=== PATIENT | female | born 1985 | race Caucasian/White ===

== ENCOUNTER 2016-10-23 23:20 | Emergency (ER) | payer BC, OTHER, SELFPAY ==
[~2016-10-23] VITALS: Ht 162.6 cm; Wt 79.4 kg
[~2016-10-23 23:20] MED LIST: /INSUNPH SC; /INSUREG SC; /LABE20TA PO; GLYBERIDE PO; IBUP80TA PO; INSURSD SC; LABE300T PO; LABE5INJ PO; NOVOINJ5 SC; ONE A DAY VITAMIN PO; PERC5TAB6 PO
[2016-10-24 05:00] VITALS: BP 127/70
[2016-10-24] MEDS ORDERED: NORCO 5/325MG TABLET (BULK FOR ED) PO ONE (06:30)
--- NOTE | 2016-10-24 08:25 | REP ---
Left wrist series: Six views including navicular projection. History: Wrist injury. Findings: Six views of the left wrist demonstrate normal bones, joints and soft tissues. No fracture or subluxation is seen. Impression: No fracture seen. Signed by Cole Mcintosh MD 10/24/2016 10:14 A
== END 2016-10-24 06:49 | disposition home or self-care (01) ==
LOC: M ED 10-24
DX: Z88.2 Allergy status to sulfonamides (principal)

== ENCOUNTER → 2017-02-21 | Outpatient (REF) | payer BC ==
[~2017-02-21] MED LIST changes: +NITR100C2; +PERC5TAB12 PO; -PERC5TAB6 PO; +PHEN37.5; +TYLE500T78 PO; +ULTR50TA8 PO; +ZOFR4TAB3 PO
== END ==
LOC: M LAB REF 12:43
PROVIDERS: ATTEND Physician Assistant
DX: N30.01 Acute cystitis with hematuria (principal)

== ENCOUNTER 2017-02-22 17:16 | Emergency (ER) | payer BC ==
[~2017-02-22] VITALS: Ht 162.6 cm; Wt 76.3 kg
[~2017-02-22 17:16] MED LIST changes: -NITR100C2; -PHEN37.5; -TYLE500T78 PO; -ULTR50TA8 PO; -ZOFR4TAB3 PO
[2017-02-22] MEDS ORDERED: PHEN37.5 (17:37)
[2017-02-22] MEDS ORDERED: NITR100C2 (17:37)
[2017-02-22] MEDS ORDERED: NS 1,000 ML IV ONE (18:15)
[2017-02-22] MEDS ORDERED: KETOROLAC 30 MG/ML VIAL (J1885) IV ONE (18:15)
[2017-02-22] MEDS ORDERED: ONDANSETRON 4MG/2ML VIAL (J2405) IV ONE (18:15)
[2017-02-22] MEDS ORDERED: PANTOPRAZOLE 40MG INJ (PROTONIX) (C9113) IV ONE (18:15)
[2017-02-22 18:51] LABS: BASO % 0.4 % (0.0-1.0); EOS # 0.1 K/mm3 (0.0-0.50); LARGE UNSTAINED CELL # 0.1 K/mm3 (0.0-0.4); LARGE UNSTAINED CELL % 1.7 % (0.0-4.0); LYMPH # 1.5 K/mm3 (1.5-6.5); LYMPH % 19.6 % (24.0-44.0); MEAN CORPUSCULAR HEMOGLOBIN 29.4 pg (27.0-33.0); MEAN CORPUSCULAR HGB CONC 32.5 g/dl (32.0-36.5); MEAN CORPUSCULAR VOLUME 90.4 fl (80.0-96.0); MONO # 0.4 K/mm3 (0.0-0.8); MONO % 5.1 % (0.0-5.0); NEUTROPHILS # 4.9 K/mm3 (1.8-7.7); NEUTROPHILS % 71.2 % (36.0-66.0); PLATELET COUNT, AUTOMATED 246 k/mm3 (150-450); RED CELL DISTRIBUTION WIDTH 12.3 % (11.5-14.5); WHITE BLOOD COUNT 6.9 K/mm3 (4.0-10.0)
[2017-02-22 19:04] LABS: ALBUMIN 3.7 GM/DL (3.2-5.2); ALBUMIN/GLOBULIN RATIO 1.16 (1.00-1.93); ALKALINE PHOSPHATASE 50 U/L (45-117); ALT/SGPT 23 U/L (12-78); AMYLASE 27 U/L (25-115); ANION GAP 6 MEQ/L (8-16); AST/SGOT 9 U/L (15-37); BILIRUBIN,DIRECT 0.1 MG/DL (0.0-0.2); BILIRUBIN,TOTAL 0.4 MG/DL (0.2-1.0); BLOOD UREA NITROGEN 13 MG/DL (7-18); CALCIUM LEVEL 8.8 MG/DL (8.5-10.1); CARBON DIOXIDE LEVEL 29 MEQ/L (21-32); CHLORIDE LEVEL 103 MEQ/L (98-107); GLOMERULAR FILTRATION RATE > 60.0 (>60); GLUCOSE, FASTING 102 MG/DL (70-105); POTASSIUM SERUM 4.5 MEQ/L (3.5-5.1); SODIUM LEVEL 138 MEQ/L (136-145); TOTAL PROTEIN 6.9 GM/DL (6.4-8.2)
--- NOTE | 2017-02-22 19:20 | REPUSA ---
HISTORY: Abdominal pain. Comparison is made to previous CT of abdomen and pelvis dated 04/01/15. TECHNIQUE: Axial CT imaging of abdomen and pelvis with sagittal and coronal reformatted imaging, wi thout contrast. DLP= 426.4 mGy-cm. FINDINGS: Bone windows demonstrate bilateral spondylolysis at the L5/S1 pars interarticularis with 3 mm anterospondylolisthesis of L5 upon S1. No other bony lesion is seen. Lung bases are clear. The liver, biliary tree, gallbladder, spleen, pancreas, duodenum, and stomach are normal. Abdominal aorta and IVC are normal. Bilateral adrenal glands are normal. Kidneys demonstrate no mas s, calculus, or obstruction on the noncontrast examination. No retroperitoneal adenopathy is seen. Ureters and urinary bladder are normal on noncontrast examination. No pelvic mass lesions or abnorma l peritoneal fluid collections are seen. Tubal ligation clips are noted. The bowel is normal with n o evidence of bowel wall mass lesion, obstruction, perforation, inflammatory reaction, or evidence of diverticulitis. Appendix is visualized and normal. No abdominal wall hernia is seen. Impression: 1. 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 2. The remainder of the noncontrast CT examination of the abdomen and pelvis is normal.
[2017-02-22 19:23] VITALS: BP 128/69
== END 2017-02-22 20:00 | disposition home or self-care (01) ==
LOC: M ED 17:16
DX: N39.0 Urinary tract infection, site not specified (principal); E86.0 Dehydration; R11.2 Nausea with vomiting, unspecified; Z72.0 Tobacco use
CPT/HCPCS: 74176; 80048; 80076; 81001; 82150; 83690; 85025; 86705; 86709; 86803; 87086; 87340; 96361; 96374; 96375; 99283; C9113; J1885; J2405

== ENCOUNTER → 2017-02-28 | Outpatient (REF) | payer BC ==
[~2017-02-28] MED LIST changes: +NITR100C2; +PHEN37.5; +TYLE500T78 PO; +ULTR50TA8 PO; +ZOFR4TAB3 PO
[2017-02-28 16:34] LABS: BASO % 0.5 % (0.0-1.0); EOS # 0.1 K/mm3 (0.0-0.50); EOS % 1.8 % (0.0-3.0); LARGE UNSTAINED CELL # 0.1 K/mm3 (0.0-0.4); LARGE UNSTAINED CELL % 2.2 % (0.0-4.0); LYMPH # 1.9 K/mm3 (1.5-6.5); LYMPH % 27.9 % (24.0-44.0); MEAN CORPUSCULAR HEMOGLOBIN 30.4 pg (27.0-33.0); MEAN CORPUSCULAR HGB CONC 34.1 g/dl (32.0-36.5); MEAN CORPUSCULAR VOLUME 89.1 fl (80.0-96.0); MONO # 0.4 K/mm3 (0.0-0.8); NEUTROPHILS # 3.9 K/mm3 (1.8-7.7); NEUTROPHILS % 61.7 % (36.0-66.0); PLATELET COUNT, AUTOMATED 269 k/mm3 (150-450); RED CELL DISTRIBUTION WIDTH 12.3 % (11.5-14.5); WHITE BLOOD COUNT 6.4 K/mm3 (4.0-10.0)
[2017-02-28 18:44] LABS: ALBUMIN 4.2 GM/DL (3.2-5.2); ALKALINE PHOSPHATASE 43 U/L (45-117); ALT/SGPT 18 U/L (12-78); AMYLASE 33 U/L (25-115); ANION GAP 10 MEQ/L (8-16); AST/SGOT 9 U/L (15-37); BILIRUBIN,TOTAL 0.9 MG/DL (0.2-1.0); BLOOD UREA NITROGEN 13 MG/DL (7-18); CALCIUM LEVEL 8.6 MG/DL (8.5-10.1); CARBON DIOXIDE LEVEL 27 MEQ/L (21-32); CHLORIDE LEVEL 105 MEQ/L (98-107); CREATININE FOR GFR 0.79 MG/DL (0.55-1.02); GLOMERULAR FILTRATION RATE > 60.0 (>60); GLUCOSE, FASTING 77 MG/DL (70-105); POTASSIUM SERUM 4.3 MEQ/L (3.5-5.1); SODIUM LEVEL 142 MEQ/L (136-145); TOTAL PROTEIN 7.2 GM/DL (6.4-8.2)
== END ==
LOC: M SFHCLERA 14:05
PROVIDERS: ATTEND Physician Assistant
DX: R10.11 Right upper quadrant pain (principal)

== ENCOUNTER → 2017-03-01 | Outpatient (CLI) | payer BC ==
[~2017-03-01] MED LIST changes: +ISOVUE-300 61% 50ML VIAL (Q9967) As Ordered ONE; +ISOVUE-370 76% 100ML VIAL (Q9967) As Ordered ONE
--- NOTE | 2017-03-01 13:18 | REP ---
Abdominal right upper quadrant ultrasound: There is a positive Croft's sign to transducer pressure. There is no cholelithiasis, gallbladder wall thickening or pericholecystic fluid. The common biliary duct measures 7.7 mm and is mildly dilated. There is no intrahepatic biliary duct dilatation. The hepatic parenchyma is homogeneous and otherwise unremarkable. The pancreas is obscured by bowel gas. There is no right renal hydronephrosis or mass. There is a 1.4 cm right renal lower pole cyst. There are multiple tiny echogenic foci in the renal papillae, possibly tiny nonobstructive calculi . This pattern can be seen in medullary sponge kidney. They were not present on the prior study of 09/28/2005.. Impression: The common duct is mildly dilated measuring up to 7.7 mm in diameter. There is no intrahepatic biliary duct dilatation. No cholelithiasis. There is a positive Croft's sign to transducer pressure. The possibility of a common duct calculus cannot be entirely discounted. Consider radionuclide biliary scan and / or MRI cholangiopancreatography. Probable multiple tiny calculi in many renal patella, nonobstructive. Question of medullary sponge kidney. Signed by Sunil Wan MD 03/01/2017 08:48 A
== END ==
LOC: M RAD 07:40
PROVIDERS: ATTEND Physician Assistant
DX: R10.11 Right upper quadrant pain (principal)

== ENCOUNTER → 2017-03-09 | Outpatient (CLI) | payer BC ==
[~2017-03-09] MED LIST changes: -ISOVUE-300 61% 50ML VIAL (Q9967) As Ordered ONE; -ISOVUE-370 76% 100ML VIAL (Q9967) As Ordered ONE
--- NOTE | 2017-03-09 16:19 | REP ---
Urinary tract sonography: History: Abnormal weight loss. Kidney calculi. Comparison CT study 02/22/2017. Findings: Scanning at the level of the urinary bladder shows no abnormality. Renal cortical echogenicity pattern is normal and renal contours are smooth. No hydronephrosis is seen. No mass is observed. There is a 0.6 cm cyst in the upper pole of the left kidney and a 1.5 cm cyst is seen in the lower pole right kidney. Renal pyramids and central renal sinus fat and is echogenic raising question of bilateral medullary sponge kidney. This is similar to the appearance of the right kidney on ultrasound 03/01/2017. Impression: Hyperechoic renal pyramids and intrarenal echo genic sinus fat question medullary sponge kidney. Dehydration states can produce this effect as well. Small bilateral renal cortical cysts. No hydronephrosis or mass. Signed by Cole Mcintosh MD 03/09/2017 05:01 P
== END ==
LOC: M RAD 14:12
PROVIDERS: ATTEND Physician Assistant
DX: Q61.5 Medullary cystic kidney (principal)

== ENCOUNTER → 2017-03-16 | Outpatient (CLI) | payer BC ==
--- NOTE | 2017-03-16 14:45 | REP ---
Hepatobiliary scan and gallbladder ejection fraction: History: Right upper quadrant pain. Technique: 6.6 mCi of technetium-99m mebrofenin was injected and sequential anterior images are acquired. 65 minutes after the mebrofenin injection, the patient consumed 8 ounces Ensure and an additional 60 minutes of imaging was acquired. Regions of interest are plotted around the gallbladder. Findings: The initial hepatocellular parenchymal uptake phase is normal and homogeneous. Intra- and extra-hepatic bile ducts and duodenum are labeled by the 15 -minute image. The gallbladder is first labeled on the 20 -minute image. There is normal washout from the liver parenchyma into the gallbladder and small intestine on subsequent images. The gallbladder ejection fraction is 63 %. Values greater than 35 % are considered normal with this technique. Impression: Normal hepatobiliary scan and normal gallbladder ejection fraction. Signed by Cole Mcintosh MD 03/16/2017 10:46 A
== END ==
LOC: M RAD 07:58
PROVIDERS: ATTEND Physician Assistant
DX: R10.11 Right upper quadrant pain (principal)
CPT/HCPCS: 78227; A9537; J2805

== ENCOUNTER → 2017-03-20 | Outpatient (REF) | payer BC ==
[2017-03-20 17:18] LABS: MEAN CORPUSCULAR HEMOGLOBIN 30.4 pg (27.0-33.0); MEAN CORPUSCULAR HGB CONC 33.9 g/dl (32.0-36.5); MEAN CORPUSCULAR VOLUME 89.6 fl (80.0-96.0); RED CELL DISTRIBUTION WIDTH 12.3 % (11.5-14.5); WHITE BLOOD COUNT 8.3 K/mm3 (4.0-10.0)
[2017-03-20 17:20] LABS: ALBUMIN 4.1 GM/DL (3.2-5.2); ANION GAP 7 MEQ/L (8-16); BLOOD UREA NITROGEN 13 MG/DL (7-18); CARBON DIOXIDE LEVEL 28 MEQ/L (21-32); CHLORIDE LEVEL 105 MEQ/L (98-107); CREATININE FOR GFR 0.75 MG/DL (0.55-1.02); GLOMERULAR FILTRATION RATE > 60.0 (>60); GLUCOSE, FASTING 88 MG/DL (70-105); PHOSPHORUS LEVEL 3.1 MG/DL (2.5-4.9); SODIUM LEVEL 140 MEQ/L (136-145)
== END ==
LOC: M SFHCLERA 13:28
PROVIDERS: ATTEND Physician Assistant
DX: R10.9 Unspecified abdominal pain (principal)

== ENCOUNTER 2017-03-26 09:19 | Emergency (ER) | payer BC ==
[~2017-03-26] VITALS: Ht 162.6 cm; Wt 75.4 kg
[~2017-03-26 09:19] MED LIST changes: -TYLE500T78 PO; -ULTR50TA8 PO; -ZOFR4TAB3 PO
[2017-03-26] MEDS ORDERED: ONDANSETRON 4MG/2ML VIAL (J2405) As Ordered ONE (09:41)
[2017-03-26] MEDS ORDERED: KETOROLAC 30 MG/ML VIAL (J1885) As Ordered ONE (09:41)
[2017-03-26] MEDS ORDERED: KETOROLAC 30 MG/ML VIAL (J1885) IV ONE (09:45)
[2017-03-26] MEDS ORDERED: NS 1,000 ML IV ONE ×2 (09:45→11:00)
[2017-03-26] MEDS ORDERED: ONDANSETRON 4MG/2ML VIAL (J2405) IV ONE (09:45)
[2017-03-26] MEDS ORDERED: MORPHINE 4 MG/ML 1ML SYRINGE IV ONE (10:00)
[2017-03-26 10:07] LABS: BASO % 0.3 % (0.0-1.0); EOS # 0.3 K/mm3 (0.0-0.50); LARGE UNSTAINED CELL # 0.1 K/mm3 (0.0-0.4); LARGE UNSTAINED CELL % 1.5 % (0.0-4.0); LYMPH # 1.8 K/mm3 (1.5-6.5); LYMPH % 18.5 % (24.0-44.0); MEAN CORPUSCULAR HEMOGLOBIN 30.2 pg (27.0-33.0); MEAN CORPUSCULAR VOLUME 91.5 fl (80.0-96.0); MONO # 0.5 K/mm3 (0.0-0.8); MONO % 5.3 % (0.0-5.0); NEUTROPHILS # 6.6 K/mm3 (1.8-7.7); NEUTROPHILS % 71.4 % (36.0-66.0); PLATELET COUNT, AUTOMATED 258 k/mm3 (150-450); RED CELL DISTRIBUTION WIDTH 12.4 % (11.5-14.5); WHITE BLOOD COUNT 9.2 K/mm3 (4.0-10.0)
[2017-03-26 10:25] LABS: ANION GAP 5 MEQ/L (8-16); BLOOD UREA NITROGEN 12 MG/DL (7-18); CALCIUM LEVEL 9.2 MG/DL (8.5-10.1); CARBON DIOXIDE LEVEL 30 MEQ/L (21-32); CHLORIDE LEVEL 105 MEQ/L (98-107); CREATININE FOR GFR 0.91 MG/DL (0.55-1.02); GLOMERULAR FILTRATION RATE > 60.0 (>60); GLUCOSE, FASTING 63 MG/DL (70-105); POTASSIUM SERUM 3.5 MEQ/L (3.5-5.1); SODIUM LEVEL 140 MEQ/L (136-145)
[2017-03-26 10:28] LABS: METHADONE URINE NEGATIVE (NEGATIVE)
[2017-03-26 10:38] LABS: RENAL EPITHELIAL CELLS 3 /HPF
--- NOTE | 2017-03-26 11:42 | REP ---
Clinical: Left flank pain. Technique: Real time kunz scale evaluation using curved array transducer. Findings: The bilateral kidneys are normal in reniform shape and size without hydronephrosis. Increased central echogenicity is consistent with bilateral medullary sponge kidney and small intrarenal calculi cannot be excluded. Right kidney measures 11.6 x 6.0 x 4.0 cm and includes 1.3 cm lower pole simple cyst. Left kidney measures 11.1 x 5.6 x 6.1 cm without cyst or mass. The bladder is incompletely distended and grossly normal in appearance. Impression: Findings compatible with medullary sponge kidney. No hydronephrosis. 1.3 cm simple right cyst. Signed by Barrie Flores MD 03/26/2017 11:34 A
[2017-03-26] MEDS ORDERED: ULTR50TA8 PO (12:02)
[2017-03-26] MEDS ORDERED: ZOFR4TAB3 PO (12:02)
[2017-03-26] MEDS ORDERED: TYLE500T78 PO (12:02)
[2017-03-26 12:07] VITALS: BP 99/63
== END 2017-03-26 12:09 | disposition home or self-care (01) ==
LOC: M ED 09:19
DX: Q61.5 Medullary cystic kidney (principal); Z72.0 Tobacco use
CPT/HCPCS: 76775; 80048; 80307; 81001; 81025; 85025; 87088; 87186; 96361; 96374; 96375; 99283; J1885; J2405

== ENCOUNTER → 2017-05-29 | Outpatient (REF) | payer BC ==
[~2017-05-29] MED LIST changes: +TYLE500T78 PO; +ULTR50TA8 PO; +ZOFR4TAB3 PO
== END ==
LOC: M SFHCLERA 20:08
PROVIDERS: ATTEND Nurse Practitioner Family
DX: J06.9 Acute upper respiratory infection, unspecified (principal)

== ENCOUNTER → 2017-12-07 | Outpatient (REF) | payer OTHER ==
[2017-12-07 20:25] LABS: APPEARANCE, URINE CLEAR (CLEAR); BACTERIA, URINE AUTO NEGATIVE (NEGATIVE); BILIRUBIN, URINE AUTO NEGATIVE (NEGATIVE); BLOOD, URINE BLOOD NEGATIVE (NEGATIVE); COLOR, URINE YELLOW (YELLOW); GLUCOSE, URINE (UA) AUTO NEGATIVE (NEGATIVE); KETONE, URINE AUTO NEGATIVE (NEGATIVE); LEUKOCYTE ESTERASE, URINE AUTO NEGATIVE (NEGATIVE); NITRITE, URINE AUTO NEGATIVE (NEGATIVE); PROTEIN, URINE AUTO NEGATIVE (NEGATIVE); RBC, URINE AUTO 1 /HPF (0-3); SQUAMOUS EPITHELIAL CELL UR AU 1 /HPF (0-6); UROBILINOGEN, URINE AUTO 0.2 mg/dL (0.0-2.0); WBC, URINE AUTO 0 /HPF (0-3)
== END ==
LOC: M SFHCLERA 15:22
DX: Q61.5 Medullary cystic kidney (principal)

== ENCOUNTER → 2017-12-18 | Outpatient (REF) | payer OTHER ==
[2017-12-21 14:16] LABS: HPV HYBRID CAPTURE II Negative (Negative)
== END ==
LOC: M SFHCWAGY 14:50
DX: Z12.4 Encounter for screening for malignant neoplasm of cervix (principal)

== ENCOUNTER 2019-04-09 09:40 | Emergency (ER) | payer OTHER ==
[~2019-04-09] VITALS: Ht 162.6 cm; Wt 92.3 kg
[~2019-04-09 09:40] MED LIST changes: -/INSUNPH SC; -/INSUREG SC; -/LABE20TA PO; +LABE1TAB11 PO; +NOVO1INJ2 SC; +NOVO1INJ3 SC; +ZOFR4TAB14 PO; -ZOFR4TAB3 PO
[2019-04-09] MEDS ORDERED: PROZ40CA PO (09:50)
[2019-04-09] MEDS ORDERED: TRIA37.5 PO (09:50)
[2019-04-09] MEDS ORDERED: ACET-683 PO (09:50)
[2019-04-09] MEDS ORDERED: IBUP80TA PO (09:50)
[2019-04-09] MEDS ORDERED: [UNRECOGNIZED DRUG - OTHER] PO (09:50)
[2019-04-09] MEDS ORDERED: XANA0.5T PO (09:50)
[2019-04-09 10:29] LABS: BASO % 0.4 % (0.0-1.0); EOS # 0.3 10^3/uL (0.0-0.5); HEMATOCRIT 42.7 % (36.0-47.0); HEMOGLOBIN 14.8 g/dl (12.0-15.5); LYMPH # 2.4 10^3/uL (1.5-5.0); LYMPH % 23.8 % (24.0-44.0); MEAN CORPUSCULAR HEMOGLOBIN 30.2 pg (27.0-33.0); MEAN CORPUSCULAR HGB CONC 34.7 g/dl (32.0-36.5); MEAN CORPUSCULAR VOLUME 87.1 fl (80.0-96.0); MONO # 1.1 10^3/uL (0.0-0.8); MONO % 11.1 % (0.0-5.0); NEUTROPHILS # 6.3 10^3/uL (1.5-8.5); NEUTROPHILS % 61.3 % (36.0-66.0); PLATELET COUNT, AUTOMATED 320 10^3/uL (150-450); WHITE BLOOD COUNT 10.3 10^3/uL (4.0-10.0)
[2019-04-09 10:33] LABS: APPEARANCE, URINE CLEAR (CLEAR); BACTERIA, URINE AUTO NEGATIVE (NEGATIVE); BILIRUBIN, URINE AUTO NEGATIVE (NEGATIVE); BLOOD, URINE BLOOD NEGATIVE (NEGATIVE); COLOR, URINE YELLOW (YELLOW); GLUCOSE, URINE (UA) AUTO NEGATIVE (NEGATIVE); KETONE, URINE AUTO NEGATIVE (NEGATIVE); LEUKOCYTE ESTERASE, URINE AUTO NEGATIVE (NEGATIVE); NITRITE, URINE AUTO NEGATIVE (NEGATIVE); PROTEIN, URINE AUTO NEGATIVE (NEGATIVE); RBC, URINE AUTO 1 /HPF (0-3); SPECIFIC GRAVITY URINE AUTO 1.009 (1.002-1.035); SQUAMOUS EPITHELIAL CELL UR AU 0 /HPF (0-6); UROBILINOGEN, URINE AUTO 0.2 mg/dL (0.0-2.0); WBC, URINE AUTO 0 /HPF (0-3)
[2019-04-09 10:54] LABS: ERYTHROCYTE SEDIMENTATION RATE 23 mm/hr (0-20)
[2019-04-09 11:02] LABS: ALBUMIN 3.5 GM/DL (3.2-5.2); ALT/SGPT 37 U/L (12-78); BILIRUBIN,DIRECT 0.2 MG/DL (0.0-0.2); BILIRUBIN,TOTAL 0.7 MG/DL (0.2-1.0); BLOOD UREA NITROGEN 11 MG/DL (7-18); C REACTIVE PROTEIN QUANTITATIV 2.33 MG/DL (0.00-0.30); CARBON DIOXIDE LEVEL 28 MEQ/L (21-32); CHLORIDE LEVEL 99 MEQ/L (98-107); CK-MB VALUE MASS 3.3 NG/ML (<3.6); CPK CREATINE PHOSPHOKINASE 237 U/L (26-192); CREATININE FOR GFR 0.93 MG/DL (0.55-1.30); GLOMERULAR FILTRATION RATE > 60.0 (>60); GLUCOSE, FASTING 109 MG/DL (70-100); MB/CK RELATIVE INDEX 1.39 (< OR =4); POTASSIUM SERUM 2.8 MEQ/L (3.5-5.1); SODIUM LEVEL 136 MEQ/L (136-145); TOTAL PROTEIN 7.4 GM/DL (6.4-8.2); TROPONIN I < 0.02 NG/ML (< 0.10)
[2019-04-09] MEDS ORDERED: KCL 10MEQ/100ML SWI (KRUN) 10 MEQ in IV 1 EA IV ONE (11:15)
[2019-04-09] MEDS ORDERED: POTASSIUM CHLORIDE 10 MEQ SR TABLET PO ONE (11:15)
[2019-04-09 11:18] LABS: NT-PRO BNP 6 PG/ML (<125)
--- NOTE | 2019-04-09 11:24 | REP ---
Chest x-ray: Two views. History: Shortness of breath. Comparison study: October 05, 2009. Findings: The lungs are well inflated and free of infiltrate. Pleural angles are sharp. Heart size is normal. Pulmonary vasculature is not increased. No significant bony abnormality. Impression: Negative chest x-ray. Electronically Signed by Cole Mcintosh MD 04/09/2019 11:15 A
[2019-04-09] MEDS ORDERED: NYSTOI TOP (12:53)
[2019-04-09] MEDS ORDERED: PRED20TA PO (12:53)
[2019-04-09] MEDS ORDERED: K-TA10TA PO (12:53)
[2019-04-09 13:09] VITALS: BP 116/68
--- NOTE | 2019-04-09 13:48 | REP ---
Bilateral lower extremity deep vein duplex ultrasound for bilateral lower leg edema: The deep veins demonstrate normal compression, normal Doppler color flow and normal Doppler waveforms with respiration and augmentation from the popliteal veins to the common femoral veins bilaterally. Impression: There is no deep vein thrombus in the right or left lower extremities. . Electronically Signed by Sunil Wan MD 04/09/2019 01:39 P
--- NOTE | 2019-04-09 20:43 | ECGEPIP ---
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
== END 2019-04-09 13:10 | disposition home or self-care (01) ==
LOC: M ED 09:40
DX: E87.6 Hypokalemia (principal); R22.43 Localized swelling, mass and lump, lower limb, bilateral; B35.4 Tinea corporis; R00.0 Tachycardia, unspecified; J45.909 Unspecified asthma, uncomplicated; F17.200 Nicotine dependence, unspecified, uncomplicated; Z79.899 Other long term (current) drug therapy; Z88.2 Allergy status to sulfonamides

== ENCOUNTER → 2019-05-25 | Outpatient (CLI) | payer OTHER ==
[~2019-05-25] MED LIST changes: +ACET-683 PO; +K-TA10TA PO; +NYSTOI TOP; +PRED20TA PO; +PROZ40CA PO; +TRIA37.5 PO; +XANA0.5T PO; +[UNRECOGNIZED DRUG - OTHER] PO
[2019-05-25 17:55] LABS: HEMATOCRIT 43.6 % (36.0-47.0); HEMOGLOBIN 14.5 g/dl (12.0-15.5); MEAN CORPUSCULAR HEMOGLOBIN 29.7 pg (27.0-33.0); MEAN CORPUSCULAR HGB CONC 33.3 g/dl (32.0-36.5); MEAN CORPUSCULAR VOLUME 89.2 fl (80.0-96.0); PLATELET COUNT, AUTOMATED 328 10^3/uL (150-450); RED BLOOD COUNT 4.89 10^6/uL (4.00-5.40)
[2019-05-25 18:12] LABS: ALBUMIN 3.7 GM/DL (3.2-5.2); ALT/SGPT 32 U/L (12-78); BILIRUBIN,TOTAL 0.4 MG/DL (0.2-1.0); BLOOD UREA NITROGEN 15 MG/DL (7-18); CALCIUM LEVEL 8.6 MG/DL (8.5-10.1); CARBON DIOXIDE LEVEL 29 MEQ/L (21-32); CHLORIDE LEVEL 103 MEQ/L (98-107); CHOLESTEROL LEVEL 236 MG/DL (<200); CHOLESTEROL RISK RATIO 7.375 (<5); CREATININE FOR GFR 0.92 MG/DL (0.55-1.30); GLOMERULAR FILTRATION RATE > 60.0 (>60); GLUCOSE, FASTING 108 MG/DL (70-100); HDL CHOLESTEROL 32 MG/DL (>40); NON-HDL-C 204 MG/DL; POTASSIUM SERUM 3.4 MEQ/L (3.5-5.1); SODIUM LEVEL 140 MEQ/L (136-145); TOTAL PROTEIN 6.9 GM/DL (6.4-8.2); TRIGLYCERIDES LEVEL 505 MG/DL (<150)
[2019-05-25 18:16] LABS: HEMOGLOBIN A1c 5.5 %
[2019-05-26 10:42] LABS: TOTAL 25(OH) VITAMIN D 29.7 NG/ML (30.0-100.0)
== END ==
LOC: M WUC 15:36
PROVIDERS: ATTEND Family Medicine
DX: E03.9 Hypothyroidism, unspecified (principal); I10 Essential (primary) hypertension

== ENCOUNTER → 2019-10-13 | Outpatient (CLI) | payer OTHER | LOC: M LABSMTC 11:11 | PROVIDERS: ATTEND Family Medicine | DX: Z11.59 Encounter for screening for other viral diseases (principal); Z20.828 Contact with and (suspected) exposure to other viral communicable diseases ==

== ENCOUNTER → 2020-06-22 | Outpatient (CLI) | payer OTHER ==
[2020-06-22 16:15] LABS: HEMATOCRIT 49.9 % (36.0-47.0); HEMOGLOBIN 16.5 g/dl (12.0-15.5); MEAN CORPUSCULAR HEMOGLOBIN 29.6 pg (27.0-33.0); MEAN CORPUSCULAR HGB CONC 33.1 g/dl (32.0-36.5); MEAN CORPUSCULAR VOLUME 89.4 fl (80.0-96.0); PLATELET COUNT, AUTOMATED 379 10^3/uL (150-450); RED BLOOD COUNT 5.58 10^6/uL (4.00-5.40); WHITE BLOOD COUNT 10.9 10^3/uL (4.0-10.0)
[2020-06-22 16:23] LABS: ALBUMIN 4.2 GM/DL (3.2-5.2); ALT/SGPT 29 U/L (12-78); BILIRUBIN,TOTAL 0.5 MG/DL (0.2-1.0); BLOOD UREA NITROGEN 16 MG/DL (7-18); CALCIUM LEVEL 9.1 MG/DL (8.5-10.1); CARBON DIOXIDE LEVEL 28 MEQ/L (21-32); CHLORIDE LEVEL 102 MEQ/L (98-107); CHOLESTEROL LEVEL 279 MG/DL (<200); CHOLESTEROL RISK RATIO 6.065 (<5); CREATININE FOR GFR 1.17 MG/DL (0.55-1.30); GLOMERULAR FILTRATION RATE 56.7 (>60); GLUCOSE, FASTING 99 MG/DL (70-100); HDL CHOLESTEROL 46 MG/DL (>40); NON-HDL-C 233 MG/DL; POTASSIUM SERUM 3.3 MEQ/L (3.5-5.1); SODIUM LEVEL 138 MEQ/L (136-145); TOTAL PROTEIN 7.6 GM/DL (6.4-8.2); TRIGLYCERIDES LEVEL 406 MG/DL (<150)
[2020-06-22 16:33] LABS: TOTAL 25(OH) VITAMIN D 22.9 NG/ML (30.0-100.0)
[2020-06-22 17:40] LABS: HEMOGLOBIN A1c 5.5 %
== END ==
LOC: M WUC 11:34
PROVIDERS: ATTEND Family Medicine
DX: R53.83 Other fatigue (principal); E11.9 Type 2 diabetes mellitus without complications; I10 Essential (primary) hypertension; E03.9 Hypothyroidism, unspecified

== ENCOUNTER 2020-08-10 10:30 | Emergency (ER) | payer OTHER ==
[~2020-08-10] VITALS: Ht 162.6 cm; Wt 88.1 kg
[2020-08-10] MEDS ORDERED: VITA50005 (10:42)
[2020-08-10] MEDS ORDERED: PHEN-239 (10:42)
[2020-08-10] MEDS ORDERED: AMOX500C (10:42)
[2020-08-10] MEDS ORDERED: IBUP200C25 PO (10:42)
[2020-08-10] MEDS ORDERED: CPM/1TAB PO (10:42)
[2020-08-10] MEDS ORDERED: TRIA37.53 (10:42)
[2020-08-10] MEDS ORDERED: METH4PACK (10:42)
[2020-08-10] MEDS ORDERED: NS 1,000 ML IV ONE (11:15)
[2020-08-10 11:48] LABS: BASO % 0.3 % (0.0-1.0); HEMATOCRIT 45.5 % (36.0-47.0); HEMOGLOBIN 15.3 g/dl (12.0-15.5); LYMPH # 2.7 10^3/uL (1.5-5.0); LYMPH % 17.7 % (24.0-44.0); MEAN CORPUSCULAR HEMOGLOBIN 29.5 pg (27.0-33.0); MEAN CORPUSCULAR HGB CONC 33.6 g/dl (32.0-36.5); MEAN CORPUSCULAR VOLUME 87.7 fl (80.0-96.0); MONO # 0.7 10^3/uL (0.0-0.8); MONO % 4.6 % (0.0-5.0); NEUTROPHILS # 11.6 10^3/uL (1.5-8.5); NEUTROPHILS % 76.8 % (36.0-66.0); PLATELET COUNT, AUTOMATED 349 10^3/uL (150-450); RED BLOOD COUNT 5.19 10^6/uL (4.00-5.40); WHITE BLOOD COUNT 15.1 10^3/uL (4.0-10.0)
--- NOTE | 2020-08-10 11:56 | REP ---
INDICATION: Coronavirus workup. COMPARISON: April 09, 2019. TECHNIQUE: Portable upright AP chest radiograph. FINDINGS: The lungs are well inflated and free of infiltrate. Pleural angles are sharp. Heart size is normal. Pulmonary vasculature is not increased. IMPRESSION: No active disease. <Electronically signed by Lennox Mcintosh > 08/10/20 0824
[2020-08-10 11:58] VITALS: O2SAT 98
[2020-08-10 12:02] LABS: D-DIMER QUANT 275.58 ng/ml (<500)
[2020-08-10 13:31] LABS: ALBUMIN 4.3 GM/DL (3.2-5.2); ALT/SGPT 23 U/L (12-78); AMYLASE 31 U/L (25-115); BILIRUBIN,DIRECT < 0.1 MG/DL (0.0-0.2); BILIRUBIN,TOTAL 0.4 MG/DL (0.2-1.0); BLOOD UREA NITROGEN 15 MG/DL (7-18); CALCIUM LEVEL 9.6 MG/DL (8.5-10.1); CARBON DIOXIDE LEVEL 29 MEQ/L (21-32); CHLORIDE LEVEL 98 MEQ/L (98-107); CK-MB VALUE MASS < 1.0 NG/ML (<3.6); CPK CREATINE PHOSPHOKINASE 107 U/L (26-192); CREATININE FOR GFR 0.85 MG/DL (0.55-1.30); FERRITIN 15 NG/ML (8-252); GLOMERULAR FILTRATION RATE > 60.0 (>60); GLUCOSE, FASTING 84 MG/DL (70-100); LDH LACTATE DEHYDROGENASE 237 U/L (84-246); LIPASE 77 U/L (73-393); MB/CK RELATIVE INDEX 0.93 (< OR =4); NT-PRO BNP 109 PG/ML (<125); POTASSIUM SERUM 3.8 MEQ/L (3.5-5.1); SODIUM LEVEL 137 MEQ/L (136-145); TOTAL PROTEIN 7.7 GM/DL (6.4-8.2); TROPONIN I < 0.02 NG/ML (< 0.10)
[2020-08-10] MEDS ORDERED: ACETAMINOPHEN 500 MG TAB PO ONE (13:45)
[2020-08-10] MEDS ORDERED: ISOVUE-370 76% 100ML VIAL As Ordered ONE (13:59)
--- NOTE | 2020-08-10 14:41 | REP ---
INDICATION: CP, SOB. COMPARISON: None. TECHNIQUE: Contrast dose: 100 ML of Isovue [address] technique: Helical scanning is acquired and overlapping 1.5 mm and contiguous 3 mm axial images are reformatted. In addition, maximum intensity projection and multiplanar re-formation images are generated in sagittal and coronal imaging projections. FINDINGS: There is good opacification in the pulmonary arterial tree. There is no evidence of vessel cut off or filling defect to suggest pulmonary embolus. Homogeneous opacity is seen in the thoracic aorta. There is no evidence of aneurysm or dissection. Lung window settings demonstrate no evidence of infiltrate, mass, or significant pulmonary nodule. No pleural or pericardial effusion is seen. No hilar or mediastinal mass or adenopathy is observed. In the upper abdomen, there is evidence of mild fatty infiltration of the liver. Liver size is prominent. IMPRESSION: No CT evidence of pulmonary embolus. No active cardiopulmonary disease. <Electronically signed by Lennox Mcintosh > 08/10/20 [id number]
--- NOTE | 2020-08-10 14:47 | REP ---
INDICATION: CP, SOB, n/v/d. COMPARISON: Comparison CT abdomen and pelvis April 24, 2017.. TECHNIQUE: Helical scanning was acquired and 4 mm axial images are re-formatted. Coronal and sagittal MPR images were generated and reviewed. The contrast enhancement dose is 100 mL of intravenous Isovue 370. FINDINGS: Digital preliminary clother in radiograph demonstrates a dextroconvex lumbar scoliotic curve and tubal ligation clamps in the pelvis. The lung bases are clear on axial CT images. There is mild to moderate diffuse fatty infiltration of the liver. The liver is felt to be enlarged. Craniocaudal vertical span in the midclavicular line is 20.7 cm. There is a granulomatous calcification in the right lobe inferiorly. No hepatic mass lesion is observed. The spleen is normal in size homogeneous in texture. No abnormality is noted in the pancreas or the gallbladder. Kidneys enhance symmetrically and are morphologically intact. No retroperitoneal mass or adenopathy is observed. Small and large bowel loops are unremarkable in the abdomen and pelvis. Urinary bladder is intact. No uterine or ovarian abnormality is seen. There are 2 tubal ligation clamps visible on the left side, 1 in the cul-de-sac post quite posteriorly, and the other anteriorly and superior to the bladder in the left pelvis. No abdominal wall defect is seen. There is bilateral spondylolysis at L5 with a grade 1 2 mm L5-S1 spondylolisthesis. This is unchanged. A normal appendix is seen in the right lower quadrant. No abdominal wall defect is seen. IMPRESSION: Fatty infiltration of the liver and hepatomegaly. No other acute abdominal or pelvic abnormality. <Electronically signed by Lennox Mcintosh > 08/10/20 [id number]
[2020-08-10 15:28] LABS: MONO REFLEX EBV COMP NEGATIVE (NEGATIVE)
[2020-08-10] MEDS ORDERED: KETOROLAC 30 MG/ML 1ML VIAL IV ONE (16:15)
[2020-08-10 16:56] LABS: CHLAMYDIA DNA AMPLIFICATION NEGATIVE (NEGATIVE); GC DNA AMPLIFICATION NEGATIVE (NEGATIVE)
[2020-08-10 17:30] VITALS: BP 128/66
--- NOTE | 2020-08-11 14:38 | ECGEPIP ---
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
[2020-08-12 16:10] LABS: EBV VIRAL CAPSID AG IgG >600.0 U/mL (0.0-17.9); EBV VIRAL CAPSID AG IgM <36.0 U/mL (0.0-35.9); Lyme Disease IgG/IgM Antibodie <0.91 ISR (0.00-0.90); Lyme Disease IgM Ab Quantitati <0.80 index (0.00-0.79)
== END 2020-08-10 17:34 | disposition home or self-care (01) ==
LOC: M ED 10:30
DX: R06.00 Dyspnea, unspecified (principal); R21 Rash and other nonspecific skin eruption; R51.9 Headache, unspecified; R05 Cough; R06.2 Wheezing; R50.81 Fever presenting with conditions classified elsewhere; R06.02 Shortness of breath; R53.81 Other malaise; R53.83 Other fatigue; R07.0 Pain in throat; R61 Generalized hyperhidrosis; M79.10 Myalgia, unspecified site; R11.2 Nausea with vomiting, unspecified; R19.7 Diarrhea, unspecified; I10 Essential (primary) hypertension; J45.909 Unspecified asthma, uncomplicated; N30.10 Interstitial cystitis (chronic) without hematuria; T19.2XXA Foreign body in vulva and vagina, initial encounter; F17.200 Nicotine dependence, unspecified, uncomplicated; K76.0 Fatty (change of) liver, not elsewhere classified; R16.0 Hepatomegaly, not elsewhere classified; Z88.2 Allergy status to sulfonamides
CPT/HCPCS: 71045; 71275; 74177; 80047; 80048; 80076; 81001; 82150; 82550; 82553; 82728; 83605; 83615; 83690; 83880; 84702; 85025; 85379; 85384; 86140; 86308; 86617; 86664; 86665; 87040; 87070; 87205; 87210; 87486; 87581; 87633; 87661; 87798; 87880; 93005; 94760; 96361; 96374; 99284; J1885; Q9967

== ENCOUNTER → 2020-09-06 | Outpatient (CLI) | payer OTHER ==
[~2020-09-06] MED LIST changes: +AMOX500C; +CPM/1TAB PO; +IBUP200C25 PO; +METH4PACK; +PHEN-239; +TRIA37.53; +VITA50005
[2020-09-06 12:54] LABS: HEMATOCRIT 46.4 % (36.0-47.0); HEMOGLOBIN 14.9 g/dl (12.0-15.5); MEAN CORPUSCULAR HEMOGLOBIN 29.2 pg (27.0-33.0); MEAN CORPUSCULAR HGB CONC 32.1 g/dl (32.0-36.5); PLATELET COUNT, AUTOMATED 368 10^3/uL (150-450); WHITE BLOOD COUNT 7.2 10^3/uL (4.0-10.0)
[2020-09-06 13:37] LABS: HEMOGLOBIN A1c 5.2 %
[2020-09-06 13:38] LABS: ALBUMIN 4.4 GM/DL (3.2-5.2); ALT/SGPT 25 U/L (12-78); BILIRUBIN,TOTAL 0.6 MG/DL (0.2-1.0); BLOOD UREA NITROGEN 21 MG/DL (7-18); CALCIUM LEVEL 9.7 MG/DL (8.5-10.1); CARBON DIOXIDE LEVEL 30 MEQ/L (21-32); CHLORIDE LEVEL 101 MEQ/L (98-107); CHOLESTEROL LEVEL 284 MG/DL (<200); CHOLESTEROL RISK RATIO 4.655 (<5); CREATININE FOR GFR 1.07 MG/DL (0.55-1.30); GLOMERULAR FILTRATION RATE > 60.0 (>60); GLUCOSE, FASTING 86 MG/DL (70-100); HDL CHOLESTEROL 61 MG/DL (>40); LDL CHOLESTEROL 200 MG/DL (<100); NON-HDL-C 223 MG/DL; POTASSIUM SERUM 3.3 MEQ/L (3.5-5.1); SODIUM LEVEL 139 MEQ/L (136-145); TOTAL PROTEIN 7.5 GM/DL (6.4-8.2); TRIGLYCERIDES LEVEL 117 MG/DL (<150)
--- NOTE | 2020-09-06 16:19 | REP ---
INDICATION: ANEMAI, PNEUMONIA. COMPARISON: Comparison chest x-ray 10 August 2020. TECHNIQUE: Two views.. FINDINGS: The lungs are well inflated and free of infiltrate. The pleural angles are sharp. The heart size is normal. Pulmonary vasculature is not increased. No significant bony abnormality is seen. There is a mild dextroconvex lumbar curvature. No acute bony abnormality. IMPRESSION: No active disease.. <Electronically signed by Lennox Mcintosh > 09/06/20 [id number]
== END ==
LOC: M WUC 10:40
PROVIDERS: ATTEND Family Medicine
DX: D64.9 Anemia, unspecified (principal); J18.9 Pneumonia, unspecified organism

== ENCOUNTER → 2020-09-17 | Outpatient (CLI) | payer OTHER ==
--- NOTE | 2020-09-27 16:08 | REP ---
INDICATION: N63.10 RT BREAST LUMP. COMPARISON: Report was delayed pending retrieval of outside prior mammography from [facility] February 01, 2015. TECHNIQUE: Bilateral CC and MLO) view(s) were taken. Routine views of the right breast were augmented by focal spot images. A skin marker is affixed to the skin at the site of the palpable lump. 3D tomography is generated bilaterally. A targeted right breast sonography is performed. FINDINGS: Scattered fibroglandular elements are noted. At the site of the palpable lump at 12 o'clock in the right breast there is no mammographic abnormality. However, there is a small well-circumscribed 7 mm nodule in the upper outer quadrant of the right breast approximately 7-8 cm from the nipple. This may have been present previously. No other mammographic abnormality is seen on either side. The Volpara volumetric breast density pattern is B. Targeted right breast sonography: Scanning at 9 o'clock position in the right breast approximately 5 cm from nipple shows a 60.6 x 0.6 x 0.4 cm simple cyst. This is felt to account for the upper-outer quadrant nodule seen mammographically. No suspicious sonographic finding here. Targeted sonography at the site of the palpable lump at 12 o'clock shows normal stromal elements. No other cyst, mass or acoustic shadowing is seen.. IMPRESSION: BIRADS/ACR category 2 benign mammographic and right breast sonographic findings. Small cyst in the right breast. No abnormality noted at site of the palpable lump on either modality.. This patient's Tyrer-Cuzick lifetime breast cancer risk assessment score is 9.6%. This mammogram was interpreted with the aid of an FDA-approved computer-aided detection system. The patient states she had a clinical breast exam in September of 2020. The patient letter being requested is M2. RECOMMENDATION: Repeat screening mammography recommended 1 year (for women over 40). Clinical follow-up is suggested regarding the patient's palpable lump. <Electronically signed by Lennox Mcintosh > 09/27/20 [id number]
== END ==
LOC: M WHC 14:06
PROVIDERS: ATTEND Nurse Practitioner Women's Health
DX: N63.11 Unspecified lump in the right breast, upper outer quadrant (principal)
CPT/HCPCS: 76642; 77066; G0279

== ENCOUNTER → 2021-07-19 | Outpatient (CLI) | payer OTHER ==
[~2021-07-19] MED LIST changes: +ERGO500029; -VITA50005
--- NOTE | 2021-07-19 08:21 | REP ---
INDICATION: CHEST PAIN- POST COVID- EKG AFTER COMPARISON: 09/06/2020 TECHNIQUE: PA and lateral. FINDINGS: The mediastinum and cardiac silhouette are normal. The lung tate are clear and without acute consolidation, effusion, or pneumothorax. The skeletal structures are intact and normal. IMPRESSION: No acute cardiopulmonary process. <Electronically signed by Barrie Flores > 07/19/21 0818
[2021-07-19 09:11] LABS: HEMATOCRIT 43.2 % (36.0-47.0); MEAN CORPUSCULAR HEMOGLOBIN 28.5 pg (27.0-33.0); MEAN CORPUSCULAR HGB CONC 32.4 g/dl (32.0-36.5); MEAN CORPUSCULAR VOLUME 87.8 fl (80.0-96.0); PLATELET COUNT, AUTOMATED 346 10^3/uL (150-450); RED BLOOD COUNT 4.92 10^6/uL (4.00-5.40); WHITE BLOOD COUNT 7.7 10^3/uL (4.0-10.0)
[2021-07-19 09:35] LABS: ERYTHROCYTE SEDIMENTATION RATE 9 mm/hr (0-20)
[2021-07-19 09:46] LABS: ALBUMIN 3.7 GM/DL (3.2-5.2); ALT/SGPT 22 U/L (12-78); BILIRUBIN,TOTAL 0.5 MG/DL (0.2-1.0); BLOOD UREA NITROGEN 16 MG/DL (7-18); CALCIUM LEVEL 8.9 MG/DL (8.5-10.1); CARBON DIOXIDE LEVEL 27 MEQ/L (21-32); CHLORIDE LEVEL 109 MEQ/L (98-107); CHOLESTEROL LEVEL 213 MG/DL (<200); CHOLESTEROL RISK RATIO 5.071 (<5); CREATININE FOR GFR 0.78 MG/DL (0.55-1.30); GLOMERULAR FILTRATION RATE > 60.0 (>60); GLUCOSE, FASTING 87 MG/DL (70-100); HDL CHOLESTEROL 42 MG/DL (>40); LDL CHOLESTEROL 130 MG/DL (<100); NON-HDL-C 171 MG/DL; SODIUM LEVEL 142 MEQ/L (136-145); TOTAL PROTEIN 6.7 GM/DL (6.4-8.2); TRIGLYCERIDES LEVEL 204 MG/DL (<150)
[2021-07-19 10:17] LABS: HEMOGLOBIN A1c 5.3 %
--- NOTE | 2021-07-19 21:03 | ECGEPIP ---
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 Decreased voltages compared with 08/10/2020. Electronically Signed on 07-19-2021 21:02:58 EST by Seb Plata
== END ==
LOC: M RAD 07:41
PROVIDERS: ATTEND Family Medicine
DX: R07.9 Chest pain, unspecified (principal); R09.1 Pleurisy; E03.9 Hypothyroidism, unspecified

== ENCOUNTER → 2021-11-28 | Outpatient (CLI) | payer OTHER ==
[2021-11-28 17:54] LABS: HEMATOCRIT 48.1 % (36.0-47.0); HEMOGLOBIN 15.8 g/dl (12.0-15.5); MEAN CORPUSCULAR HEMOGLOBIN 28.4 pg (27.0-33.0); MEAN CORPUSCULAR HGB CONC 32.8 g/dl (32.0-36.5); MEAN CORPUSCULAR VOLUME 86.4 fl (80.0-96.0); PLATELET COUNT, AUTOMATED 331 10^3/uL (150-450); RED BLOOD COUNT 5.57 10^6/uL (4.00-5.40); WHITE BLOOD COUNT 9.2 10^3/uL (4.0-10.0)
[2021-11-28 18:08] LABS: HEMOGLOBIN A1c 5.5 %
[2021-11-28 18:36] LABS: ALBUMIN 4.2 GM/DL (3.2-5.2); ALT/SGPT 25 U/L (12-78); BILIRUBIN,TOTAL 0.7 MG/DL (0.2-1.0); BLOOD UREA NITROGEN 12 MG/DL (7-18); CALCIUM LEVEL 9.6 MG/DL (8.5-10.1); CARBON DIOXIDE LEVEL 29 MEQ/L (21-32); CHLORIDE LEVEL 102 MEQ/L (98-107); CHOLESTEROL LEVEL 249 MG/DL (<200); CHOLESTEROL RISK RATIO 5.533 (<5); CREATININE FOR GFR 0.92 MG/DL (0.55-1.30); GLOMERULAR FILTRATION RATE > 60.0 (>60); GLUCOSE, FASTING 87 MG/DL (70-100); HDL CHOLESTEROL 45 MG/DL (>40); LDL CHOLESTEROL 149 MG/DL (<100); NON-HDL-C 204 MG/DL; POTASSIUM SERUM 3.9 MEQ/L (3.5-5.1); SODIUM LEVEL 137 MEQ/L (136-145); TOTAL 25(OH) VITAMIN D 45.2 NG/ML (30.0-100.0); TOTAL PROTEIN 7.5 GM/DL (6.4-8.2); TRIGLYCERIDES LEVEL 274 MG/DL (<150)
== END ==
LOC: M WUC 10:35
PROVIDERS: ATTEND Family Medicine
DX: D64.9 Anemia, unspecified (principal); R53.83 Other fatigue; E03.9 Hypothyroidism, unspecified

== ENCOUNTER → 2022-05-02 | Outpatient (CLI) | payer OTHER ==
[~2022-05-02] MED LIST changes: -TRIA37.53; +TRIA37.577
[2022-05-02 12:24] LABS: HEMATOCRIT 46.3 % (36.0-47.0); HEMOGLOBIN 15.6 g/dl (12.0-15.5); MEAN CORPUSCULAR HEMOGLOBIN 29.4 pg (27.0-33.0); MEAN CORPUSCULAR HGB CONC 33.7 g/dl (32.0-36.5); MEAN CORPUSCULAR VOLUME 87.2 fl (80.0-96.0); PLATELET COUNT, AUTOMATED 337 10^3/uL (150-450); RED BLOOD COUNT 5.31 10^6/uL (4.00-5.40); WHITE BLOOD COUNT 7.6 10^3/uL (4.0-10.0)
[2022-05-02 13:09] LABS: ALBUMIN 4.1 GM/DL (3.2-5.2); ALT/SGPT 29 U/L (12-78); BLOOD UREA NITROGEN 12 MG/DL (7-18); CALCIUM LEVEL 9.4 MG/DL (8.5-10.1); CARBON DIOXIDE LEVEL 29 MEQ/L (21-32); CHLORIDE LEVEL 100 MEQ/L (98-107); CHOLESTEROL LEVEL 241 MG/DL (<200); CHOLESTEROL RISK RATIO 6.513 (<5); CREATININE FOR GFR 0.97 MG/DL (0.55-1.30); FREE T4 1.04 NG/DL (0.76-1.46); GLOMERULAR FILTRATION RATE > 60.0 (>60); GLUCOSE, FASTING 89 MG/DL (70-100); HDL CHOLESTEROL 37 MG/DL (>40); LDL CHOLESTEROL 125 MG/DL (<100); NON-HDL-C 204 MG/DL; POTASSIUM SERUM 3.4 MEQ/L (3.5-5.1); SODIUM LEVEL 137 MEQ/L (136-145); TOTAL PROTEIN 7.2 GM/DL (6.4-8.2); TRIGLYCERIDES LEVEL 396 MG/DL (<150)
[2022-05-02 13:43] LABS: TOTAL 25(OH) VITAMIN D 52.8 NG/ML (30.0-100.0)
[2022-05-02 13:44] LABS: ESTRADIOL 138.2 PG/ML; LUTEINIZING HORMONE 6.6 mIU/mL
[2022-05-02 14:32] LABS: HEMOGLOBIN A1c 5.5 %
[2022-05-02 15:35] LABS: FREE T3 3.7 PG/ML (2.2-4.0)
== END ==
LOC: M WUC 09:17
PROVIDERS: ATTEND Family Medicine
DX: Z79.899 Other long term (current) drug therapy (principal)

== ENCOUNTER → 2022-05-26 | Outpatient (CLI) | payer OTHER | LOC: M RAD 10:14 | PROVIDERS: ATTEND Family Medicine | DX: E04.9 Nontoxic goiter, unspecified (principal) ==

== ENCOUNTER → 2022-08-18 | Outpatient (CLI) | payer OTHER ==
[2022-08-18 16:45] LABS: HEMATOCRIT 48.6 % (36.0-47.0); HEMOGLOBIN 16.1 g/dl (12.0-15.5); MEAN CORPUSCULAR HGB CONC 33.1 g/dl (32.0-36.5); MEAN CORPUSCULAR VOLUME 87.6 fl (80.0-96.0); PLATELET COUNT, AUTOMATED 356 10^3/uL (150-450); RED BLOOD COUNT 5.55 10^6/uL (4.00-5.40); WHITE BLOOD COUNT 8.1 10^3/uL (4.0-10.0)
[2022-08-18 17:08] LABS: TOTAL IRON BINDING CAPACITY 372 UG/DL (250-425)
[2022-08-18 17:10] LABS: ALBUMIN 4.4 G/DL (3.2-5.2); ALKALINE PHOSPHATASE 47 U/L (46-116); ALT/SGPT 21 U/L (7.0-40); AST/SGOT 25 U/L (<34); BILIRUBIN,TOTAL 1.3 MG/DL (0.3-1.2); BLOOD UREA NITROGEN 16 MG/DL (9-23); CALCIUM LEVEL 9.8 MG/DL (8.5-10.1); CARBON DIOXIDE LEVEL 31 MMOL/L (20-31); CHLORIDE LEVEL 98 MMOL/L (98-107); CHOLESTEROL LEVEL 268 MG/DL (<200); CHOLESTEROL RISK RATIO 5.64 (<5); CREATININE FOR GFR 1.04 MG/DL (0.55-1.30); GLOMERULAR FILTRATION RATE > 60.0 (>60); GLUCOSE, FASTING 89 MG/DL (60-100); HDL CHOLESTEROL 47.5 MG/DL (>40); IRON (FE) 116 UG/DL (50-170); LDL CHOLESTEROL 181.7 MG/DL (<100); NON-HDL-C 221 MG/DL; PERCENT SATURATION 31.2 % (13.2-45.0); POTASSIUM SERUM 3.5 MMOL/L (3.5-5.1); SODIUM LEVEL 138 MMOL/L (136-145); TOTAL PROTEIN 7.9 G/DL (5.7-8.2); TRIGLYCERIDES LEVEL 194 MG/DL (<150)
[2022-08-18 17:12] LABS: FOLLICLE STIMULATING HORMONE 5.4 mIU/ML; LUTEINIZING HORMONE 3.1 mIU/ML; THYROID STIMULATING HORMONE 1.556 uIU/ML (0.55-4.78)
[2022-08-18 17:13] LABS: ESTRADIOL 21.4 PG/ML; TESTOSTERONE 27 NG/DL (14-76)
[2022-08-18 17:14] LABS: TOTAL 25(OH) VITAMIN D 41.5 NG/ML (20.0-100.0)
[2022-08-18 17:39] LABS: HEMOGLOBIN A1c 5.1 % (4.0-6.0)
== END ==
LOC: M WUC 12:57
PROVIDERS: ATTEND Family Medicine
DX: I10 Essential (primary) hypertension (principal); D64.9 Anemia, unspecified; R53.83 Other fatigue; E03.9 Hypothyroidism, unspecified

== ENCOUNTER → 2023-02-09 | Outpatient (CLI) | payer BC, OTHER ==
[~2023-02-09] MED LIST changes: -K-TA10TA PO; +NYST100085 TOP; -NYSTOI TOP; +POTA-164 PO
== END ==
LOC: M WHC 10:25
PROVIDERS: ATTEND Family Medicine
DX: R19.09 Other intra-abdominal and pelvic swelling, mass and lump (principal)

== ENCOUNTER → 2023-02-23 | Outpatient (CLI) | payer BC, OTHER ==
[2023-02-23 11:48] LABS: HEMATOCRIT 45.6 % (36.0-47.0); HEMOGLOBIN 14.9 g/dl (12.0-15.5); MEAN CORPUSCULAR HEMOGLOBIN 28.2 pg (27.0-33.0); MEAN CORPUSCULAR HGB CONC 32.7 g/dl (32.0-36.5); MEAN CORPUSCULAR VOLUME 86.4 fl (80.0-96.0); PLATELET COUNT, AUTOMATED 326 10^3/uL (150-450); RED BLOOD COUNT 5.28 10^6/uL (4.00-5.40); WHITE BLOOD COUNT 7.6 10^3/uL (4.0-10.0)
[2023-02-23 12:12] LABS: ALKALINE PHOSPHATASE 43 U/L (46-116); ALT/SGPT 32 U/L (7.0-40); AST/SGOT 17 U/L (<34); BILIRUBIN,TOTAL 0.8 MG/DL (0.3-1.2); BLOOD UREA NITROGEN 14 MG/DL (9-23); CALCIUM LEVEL 9.3 MG/DL (8.5-10.1); CARBON DIOXIDE LEVEL 28 MMOL/L (20-31); CHLORIDE LEVEL 103 MMOL/L (98-107); CHOLESTEROL LEVEL 239 MG/DL (<200); CHOLESTEROL RISK RATIO 5.19 (<5); CREATININE FOR GFR 0.83 MG/DL (0.55-1.30); GLOMERULAR FILTRATION RATE > 60.0 (>60); GLUCOSE, FASTING 94 MG/DL (60-100); LDL CHOLESTEROL 133.8 MG/DL (<100); POTASSIUM SERUM 3.4 MMOL/L (3.5-5.1); SODIUM LEVEL 139 MMOL/L (136-145); TOTAL PROTEIN 6.9 G/DL (5.7-8.2); TRIGLYCERIDES LEVEL 296 MG/DL (<150)
[2023-02-23 12:13] LABS: THYROID STIMULATING HORMONE 3.508 uIU/ML (0.55-4.78); TOTAL 25(OH) VITAMIN D 32.2 NG/ML (20.0-100.0)
[2023-02-23 12:18] LABS: HEMOGLOBIN A1c 5.7 % (4.0-6.0)
== END ==
LOC: M WUC 09:25
PROVIDERS: ATTEND Family Medicine
DX: R53.83 Other fatigue (principal); I10 Essential (primary) hypertension; E03.9 Hypothyroidism, unspecified

== ENCOUNTER → 2023-11-02 | Outpatient (CLI) | payer BC | LOC: M PLARAD 14:44 | PROVIDERS: ATTEND Internal Medicine Gastroenterology | DX: D37.6 Neoplasm of uncertain behavior of liver, gallbladder and bile ducts (principal); R93.2 Abnormal findings on diagnostic imaging of liver and biliary tract; N28.1 Cyst of kidney, acquired ==

== ENCOUNTER → 2024-06-26 | Outpatient (CLI) | payer BC ==
[2024-06-26 09:27] LABS: HEMATOCRIT 43.8 % (36.0-47.0); HEMOGLOBIN 14.6 g/dl (12.0-15.5); MEAN CORPUSCULAR HGB CONC 33.3 g/dl (32.0-36.5); MEAN CORPUSCULAR VOLUME 84.1 fl (80.0-96.0); PLATELET COUNT, AUTOMATED 322 10^3/uL (150-450); RED BLOOD COUNT 5.21 10^6/uL (4.00-5.40); WHITE BLOOD COUNT 8.5 10^3/uL (4.0-10.0)
[2024-06-26 09:54] LABS: ALBUMIN 3.7 G/DL (3.2-5.2); ALKALINE PHOSPHATASE 47 U/L (35-104); ALT/SGPT 20 U/L (7.0-40); AST/SGOT 12 U/L (<34); BILIRUBIN,TOTAL 0.9 MG/DL (0.3-1.2); BLOOD UREA NITROGEN 18 MG/DL (9-23); CALCIUM LEVEL 9.4 MG/DL (8.5-10.1); CARBON DIOXIDE LEVEL 27 MMOL/L (20-31); CHLORIDE LEVEL 103 MMOL/L (98-107); CHOLESTEROL LEVEL 242 MG/DL (<200); CHOLESTEROL RISK RATIO 5.01 (<5); CREATININE FOR GFR 0.82 MG/DL (0.55-1.30); GLOMERULAR FILTRATION RATE > 60.0 (>60); GLUCOSE, FASTING 82 MG/DL (60-100); HDL CHOLESTEROL 48.3 MG/DL (>40); IRON (FE) 108 UG/DL (50-170); LDL CHOLESTEROL 146.1 MG/DL (<100); NON-HDL-C 193.7 MG/DL; PERCENT SATURATION 28.6 % (13.2-45.0); POTASSIUM SERUM 3.6 MMOL/L (3.5-5.1); SODIUM LEVEL 140 MMOL/L (136-145); THYROID STIMULATING HORMONE 3.078 uIU/ML (0.55-4.78); TOTAL IRON BINDING CAPACITY 378 UG/DL (250-425); TOTAL PROTEIN 7.1 G/DL (5.7-8.2); TOTAL T3 101.9 NG/DL (60.0-181.0); TRIGLYCERIDES LEVEL 238 MG/DL (<150)
[2024-06-26 09:55] LABS: TOTAL 25(OH) VITAMIN D 51.5 NG/ML (20.0-100.0)
[2024-06-26 10:12] LABS: HEMOGLOBIN A1c 5.4 % (4.0-6.0)
== END ==
LOC: M WUC 08:25
PROVIDERS: ATTEND Family Medicine
DX: D64.9 Anemia, unspecified (principal); R53.83 Other fatigue; E03.9 Hypothyroidism, unspecified